=== PATIENT | female | born 1980 | race Caucasian/White ===

== ENCOUNTER 2020-11-01 14:36 | Outpatient (CLI) | payer BC, SELFPAY ==
--- NOTE | 2020-11-01 16:00 | ECHO_ITS ---
Patient Info Name: DAWOOD GASTON Age: 40 years : 1980 Gender: Female Ht: 61 in Wt: 130 lbs BSA: 1.60 m2 HR: 96 bpm BP: 161 / 105 mmHg Technical Quality: Good Exam Date: 11/01/2020 3:21 PM Exam Location: [facility] Patient Status: Outpatient Admit Date: 11/01/2020 Staff Ordering Physician: TdBoston MD [employer] Supervisor: Sara Baeza RDCS Attending Provider: PazBoston MD Exam Type: CA echo doppler color flow Study Info Indications - HTN PALPITIONS Complete two-dimensional, color flow and Doppler transthoracic echocardiogram is performed. Summary 1. Complete two-dimensional, color flow and Doppler transthoracic echocardiogram is performed. 2. Left ventricular chamber dimension is normal. 3. Left ventricular systolic function is normal, estimated at 60-65%. 4. There is mildly increased left ventricular wall thickness. 5. The left ventricular diastolic function is grade I diastolic dysfunction. 6. E/e' 7 is not elevated. 7. There is trace tricuspid valve regurgitation. 8. No pulmonary hypertension, estimated pulmonary arterial systolic pressure is 24 mmHg. Left Ventricle E/e' 7 is not elevated. Left ventricular chamber dimension is normal. Left ventricular systolic function is normal, estimated at 60-65%. There is mildly increased left ventricular wall thickness. The left ventricular diastolic function is grade I diastolic dysfunction. Right Ventricle Right ventricular chamber dimension is normal. Right ventricular systolic function is normal. Left Atria Left atrial chamber dimension is normal. Right Atria Right atrial chamber dimension is normal. Aortic Valve The aortic valve is trileaflet. There is no aortic valve stenosis. There is no aortic valve regurgitation. Pulmonic Valve There is no pulmonic regurgitation. Mitral Valve There is no mitral valve stenosis. There is no mitral valve regurgitation. Tricuspid Valve There is trace tricuspid valve regurgitation. No pulmonary hypertension, estimated pulmonary arterial systolic pressure is 24 mmHg. Pericardium/Pleural There is no pericardial effusion. Inferior Vena Cava Normal inferior vena cava with >50% collapse upon inspiration consistent with normal right atrial pressure, 5 mmHg. Aorta The aortic root size at the sinus of Valsalva is normal. Left Ventricular Outflow Tract Name Value Normal LVOT 2D LVOT Diameter 2.0 cm LVOT Doppler LVOT Peak Gradient 5 mmHg LVOT Mean Gradient 3 mmHg LVOT VTI 20 cm LVOT VTI/AV VTI Ratio 0.8 LVOT Stroke Volume 62 ml LVOT CO 15.5 l/min LVOT CI 9.7 l/min/m2 Pulmonic Valve Name Value Normal PV Doppler
--- NOTE | 2020-11-05 13:12 | P.PCNHOL_ITS ---
Holter/Event Monitor Holter/Event Monitor Date of procedure: 11/05/20 Procedure Type: 48 hour Holter monitor Diagnosis: palpitations Indications: palpitation Image/Tracing Quality: favorable Finding: the basic rhythm is sinus with normal WI QRS and QT interval. The heart rate varies from a minimum of 62 to a maximum of 141 with a mean rate of 90. There were no abrupt pauses are examples of abnormal AV conduction. The longest RR interval seen was 1.2 seconds. Supraventricular ectopic activity was exceedingly rare with 2 PAC seen during the entire exam. Ventricular ectopic activity was not seen at all during this exam the patient maintained a diary in which 1 episode of palpitations was reported at 3:55 p.m. on the 1st day of recording. The corresponding cardiac rhythm at this time was sinus at 93 beats per minute without any arrhythmias Conclusion: unremarkable 48 hour Holter monitor Boston Preciado MD [facility]
== END 2020-11-01 14:37 | disposition home or self-care (01) ==
PROVIDERS: Visit Provider Internal Medicine
DX: R00.2 Palpitations (principal); I51.9 Heart disease, unspecified
CPT/HCPCS: 93225; 93226; 93306

== ENCOUNTER 2021-01-01 12:56 | Outpatient (CLI) | payer BC, SELFPAY ==
--- NOTE | ~2021-01-01 | US_ITS ---
EXAMINATION: US retroperitoneal duplex ltd EXAM DATE: 01/01/2021 13:34 INDICATION: TECHNIQUE: Multiple grayscale and Doppler images of the kidneys and renal arteries were obtained. T here is no prior study for comparison. FINDINGS: Right kidney measures 9.2 x 3.4 x 4.1 cm, left measuring 9.2 x 4.6 x 4.5 cm. No hydronephro sis. The aorta peak systolic velocity is 127 cm/s. The right renal artery peak systolic velocity is 118 cm /s in the proximal segment, 122 cm/s in the mid segment, and 111 cm/s in the distal segment. The left renal artery peak systolic velocity is 102 cm/s in the proximal segment, 56 cm/s in the mid segment, and 40 cm/s in the distal segment. IMPRESSION: 1. Renal artery Doppler velocities within normal limits. Reviewed, dictated and finalized at location B. OR [employer]
== END 2021-01-01 12:57 | disposition home or self-care (01) ==
PROVIDERS: PCP Physician Assistant; Visit Provider Physician Assistant
DX: I10 Essential (primary) hypertension (principal)
CPT/HCPCS: 93976

== ENCOUNTER 2023-03-31 13:24 | Outpatient (CLI) | payer BC, SELFPAY ==
--- NOTE | ~2023-03-31 | MM_ITS ---
EXAMINATION: MM screening quan BI w trevor HISTORY: Screening mammogram TECHNIQUE: Craniocaudal and mediolateral oblique 3-D tomosynthesis images were obtained and synthetic 2-D images were generated. CAD analysis was submitted and interpreted. COMPARISON: None, baseline BREAST PARENCHYMAL COMPOSITION: The breasts are heterogeneously dense, which may obscure small masses . FINDINGS: RIGHT BREAST: There is focal asymmetry in the posterior third of the breast. LEFT BREAST: No suspicious mass, calcification, or architectural distortion are identified to suggest malignancy. IMPRESSION: 1. Right breast focal asymmetry. 2. Additional mammographic views and possible breast ultrasound are recommended to assess the focal a symmetry and establish a baseline given that this is the first mammographic examination. BI-RADS Category 0: Incomplete: Needs additional imaging evaluation. Reviewed, dictated and finalized at location A. IMPRESSION: 1. Right breast focal asymmetry. 2. Additional mammographic views and possible breast ultrasound are recommended to assess the focal asymmetry and establish a baseline given that this is the first mammographic examination. BI-RADS Category 0: Incomplete: Needs additional imaging evaluation.
== END 2023-03-31 13:25 | disposition home or self-care (01) ==
LOC: ANHIMG 13:26
PROVIDERS: PCP Physician Assistant; Visit Provider Physician Assistant
DX: Z12.31 Encounter for screening mammogram for malignant neoplasm of breast (principal); R92.8 Other abnormal and inconclusive findings on diagnostic imaging of breast
CPT/HCPCS: 77063; 77067

== ENCOUNTER 2023-05-27 12:51 | Outpatient (CLI) | payer BC, SELFPAY ==
--- NOTE | ~2023-05-27 | MM_ITS ---
EXAMINATION: MM diagnostic quan RT w trevor HISTORY: Right breast focal mammographic asymmetry, posterior third of breast on screening 03/31/2023 TECHNIQUE: Additional 3-D tomosynthesis images of the right breast were performed and synthetic 2-D i mages were generated. CAD analysis was submitted and interpreted. COMPARISON: 03/31/2023ilateral screening mammogram FINDINGS: The area of asymmetry compresses out. No suspicious mass or architectural distortion, malig nant calcifications, skin thickening or retraction is evident. IMPRESSION: 1. No mammographic evidence of malignancy 2. Routine annual mammographic screening is recommended BI-RADS Category 1: Negative Reviewed, dictated and finalized at location A.
== END 2023-05-27 12:52 | disposition home or self-care (01) ==
PROVIDERS: PCP Physician Assistant; Visit Provider Physician Assistant
DX: R92.8 Other abnormal and inconclusive findings on diagnostic imaging of breast (principal)
CPT/HCPCS: 77061; 77065; G0279